=== PATIENT | male | born 1955 | race Caucasian/White ===

== ENCOUNTER 2022-12-20 01:03 | Day surgery (SDC) | payer BC, SELFPAY ==
[2022-12-07 09:27] VITALS: BMI 25.0
[2022-12-20 07:14] VITALS: BP 152/87; PULSE 64; RESP 16; TEMP 36.2; O2SAT 99; BMI 24.9
[2022-12-20] MEDS: LACTATED RINGERS 1,000 ML 150 ML IV CONT (07:23)
[2022-12-20 08:47] VITALS: BP 126/71; PULSE 64; RESP 23; O2SAT 97
[2022-12-20 08:57] VITALS: BP 141/75; PULSE 61; RESP 15; O2SAT 97
[2022-12-20 09:07] VITALS: BP 139/82; PULSE 56; RESP 18; O2SAT 100
--- NOTE | 2022-12-21 20:00 | P.HP_ITS ---
History of Present Illness History of Present Illness Consent: Risks, benefits, and alternatives have been discussed and questions answered. Patient agrees to proceed with procedure. Chief complaint: neoplasm screening Narrative: Red Crouch is a 67 year old male referred for colon cancer screening Review of Systems Review of Systems: All systems reviewed & are unremarkable except as noted in HPI and below [facility] Social History Social History Smoking status: Never smoker Alcohol intake: current Substance use type: does not use Living arrangements: with family Spiritual care concerns: No Meds Home Medications and Allergies Home Medications Medication Instructions Recorded Confirmed Type multivitamin with minerals-folic 1 tablet PO DAILY 12/07/22 12/20/22 History acid 0.4 mg tablet Allergies Allergy/AdvReac Type Severity Reaction Status Date / Time No Known Allergies Allergy Verified 12/20/22 07:13 Exam Const: General: alert Orientation/consciousness: patient oriented x3 Resp: Auscultation: clear to auscultation bilaterally Cardio: Rhythm: regular rhythm GI: GI Palp: Yes Soft to palpation and No Tenderness to palpation present (GI) Neuro: General: patient oriented x3 Assessment and Plan Assessment and plan (1) Colon cancer screening: Code(s): Z12.11 - Encounter for screening for malignant neoplasm of colon Status: Acute Assessment and Plan: Colonoscopy with possible biopsy or polypectomy or cautery or injection of substances.
== END 2022-12-20 09:21 | disposition home or self-care (01) ==
PROVIDERS: PCP Internal Medicine; Visit Provider Internal Medicine Gastroenterology
PROC: 0DJD8ZZ Inspection of Lower Intestinal Tract, Via Natural or Artificial Opening Endoscopic (ICD-10-PCS; CPT 45378; principal; 2022-12-20 08:30)
DX: Z12.11 Encounter for screening for malignant neoplasm of colon (principal); D12.4 Benign neoplasm of descending colon; K57.30 Diverticulosis of large intestine without perforation or abscess without bleeding
CPT/HCPCS: 45385; 88305; J2704; J7120

== ENCOUNTER 2024-12-13 08:44 | Outpatient (CLI) | payer OTHER, SELFPAY ==
--- OUTSIDE RECORDS SUMMARY | 2024-12-13 08:48 | XMS_ITS | CONTINUITY OF CARE DOCUMENT ---
Author Name nichole varela Address Unknown Organization [facility] Address [id number] [place] [address] [address] [place] [address] Phone [phone] Care Team Providers Care Die Set Up Worker Name Role Phone nichole varela Unavailable Unavailable INSURANCE PROVIDERS Payer name Policy type / Coverage type J Carlos red democrat ID [facility] [id number]
[2024-12-13 09:05] LABS: Basophils Absolute Auto 0.1 K/mm3 (0.0-0.1); Basophils Percent Auto 0.8 % (0.2-1.2); Eosinophils Absolute Auto 0.1 K/mm3 (0-0.3); Eosinophils Percent Auto 1.8 % (0-4.4); Immature Granulocyte Absolute 0.02 K/mm3 (0.00-0.031); Immature Granulocyte Percent A 0.3 % (0-0.5); Lymphocytes Percent Auto 37.6 % (18.3-44.2); Mean Corpuscular HGB Conc 33.3 g/dl (32-36); Mean Corpuscular Hemoglobin 32.4 pg (26-34); Mean Corpuscular Volume 97.2 fl (80-100); Mean Platelet Volume 9.1 fl (7.4-10.4); Monocytes Absolute Auto 0.7 K/mm3 (0.1-0.6); Monocytes Percent Auto 11.8 % (2.6-8.5); Neutrophils Absolute Auto 2.9 K/mm3 (1.3-6.7); Neutrophils Percent Auto 47.7 % (45.5-73.1); Platelet Count Result 184 k/mm3 (150-375); Red Blood Count 4.63 M/mm3 (4.6-6.20); Red Cell Distribution Width 12.7 % (11.5-14.5); White Blood Count 6.1 K/mm3 (4.5-10.0)
== END 2024-12-13 08:45 | disposition home or self-care (01) ==
LOC: ANHLAB 08:46
PROVIDERS: PCP Internal Medicine; Visit Provider Surgery
DX: K40.90 Unilateral inguinal hernia, without obstruction or gangrene, not specified as recurrent (principal)
CPT/HCPCS: 36415; 85025; 86850; 86900; 86901

== ENCOUNTER 2024-12-18 01:07 | Day surgery (SDC) | payer OTHER, SELFPAY ==
[2024-12-11 09:28] VITALS: BMI 27.0
--- NOTE | 2024-12-11 09:40 | PC.NURSE ---
Report to the Outpatient Waiting Room, entrance under the green pavilion located off [facility], at time ___10:00AM____ on date ___12/18/24____. Planned Procedure Time: ___12:00PM .? Time changes happen often and if your time is changed the preop area will call you the afternoon before. - You and your visitor will be asked to self-screen and do not enter if you have any COVID symptoms. Please call surgeon if you need to reschedule. - A mask is optional within the hospital at this time. Patients may have clear liquids (water, carbonated beverages, clear teas, apple juice) until 3 hours prior to surgery (9:00AM) with a maximum of 20 ounces. - No food from midnight until time of surgery and no smoking, or chewing tobacco (or any form of nicotine). No chewing gum, candy or mints. Take only the following medications with a SIP of water on the morning of surgery: NONE DO NOT STOP ANY OF YOUR OTHER PRESCRIPTION MEDICATIONS PRIOR TO SURGERY EXCEPT THE FOLLOWING Hold all vitamins and supplements for 3 days per anesthesiologist Date to take last dose 12/14/24 Please no make-up, nail surinamese, hairspray, perfume, deodorant, or body powder the day of surgery.? No jewelry (including any body piercings) or valuables the day of surgery, leave them at home.? Please take a shower or bath the night before, or the morning of, surgery with an antibacterial soap.? Wear comfortable, loose fitting clothing.? - Jewelry must be removed prior to entering the operating room.? Rings and piercings that are not removed may be cut off. - The hospital will not accept responsibility for valuables.? - Please leave all valuables, including medications, at home the day of surgery. If you are going home after surgery, a licensed dedicated driver must drive you home.? - NO public transportation without another adult if you receive anesthesia. - We recommend that an adult stay with you for 24 hours following discharge. - We also recommend that you do not drive, make important decision, drink alcoholic beverages, or take any drugs that were not prescribed by your health care provider for at least 24 hours after your discharge time. Follow any additional instructions given to you from your surgeon. Telephone instructions given to ____PATIENT and asked if any additional questions and then verbalized understanding. Patient advised to call surgeon office or pre surgery nurse liaison [phone] if any additional questions.
--- NOTE | 2024-12-16 15:47 | P.SS_ITS ---
Same Day Admit/Disch: [facility] History of Present Illness Chief complaint: Lt Ing Hernia Narrative: Red Crouch is a 69 year old male Who noticed a bulge in the left inguinal area in the summer or fall of 2023. He was suspicious this was a hernia as he had had a right inguinal hernia repair in 2016. The groin area and bulge is uncomfortable and even painful with more activity and straining. He was seen in the office and found to have a reducible left inguinal hernia. After thorough discussion, he is taken to surgery now for robotic laparoscopic repair left inguinal hernia with mesh. [facility] Past Medical History Medical History (Updated 12/18/24 @ 14:29 by Eliecer Page MD) Overweight Social History Social History Smoking status: Never smoker Alcohol intake: current Drinks per week: 6 Substance use type: does not use Living arrangements: with family Additional living arrangements comments: Spiritual care concerns: No Same Day Admit/Disch: Med Pre-admit Medications Home Medications ?Medication ?Instructions ?Recorded ?Confirmed ?Type multivitamin with minerals-folic 1 tablet PO DAILY 12/07/22 12/18/24 History acid 0.4 mg tablet ibuprofen 600 mg tablet 600 mg PO Q6H PRN pain #14 tabs 12/18/24 Rx oxycodone-acetaminophen 5 mg-325 0.5 - 1 tablet PO Q4H PRN pain #10 12/18/24 Rx mg tablet (Percocet) tabs Review of Systems Review of Systems All systems reviewed & are unremarkable except as noted in HPI and below ( HPI) Exam 2 Const: General: comfortable, no acute distress, alert and awake HENMT: Head: normocephalic and atraumatic Mouth: Yes Normal oral and palatal mucosa present Eyes: Conjunctivae: conjunctivae normal Pupils: Equal, round and reactive pupils present EOM: EOMs intact bilaterally Neck: Neck: normal visual inspection, no lymphadenopathy and nontender Resp: Effort & Inspection: normal respiratory effort Auscultation: clear to auscultation bilaterally Cardio: Rate: regular rate Rhythm: regular rhythm Heart sounds: no ga llops, no murmurs and no rubs GI: Inspection: non-distended GI Palp: Yes Soft to palpation, No Tenderness to palpation present (GI), No Hepatomegaly present and No Splenomegaly present : Male General Exam: Yes hernia ( left inguinal bulge, pulses with cough, reduces easily. No right hernia) Penis: Yes normal penis Scrotum: scrotum normal Testes: Testes normal Skin: Lesions: no lesions Rashes: no rashes Neuro: General: no focal motor deficits and CN's II-XI intact bilaterally Cranial nerves: Yes Equal, round and reactive pupils present, Yes Bilaterally intact EOM present, Yes facial symmetry and Yes Midline tongue present Speech: normal speech Motor exam (neuro): 5/5 motor strength present throughout and Motor abnormalities not present Extrem: General: no clubbing, cyanosis or edema and edema Psych: Affect: normal affect Thought process: Normal thought process present Insight: Good insight present (Psych) DS: Summary Time Spent with Patient Time attestation: Total time spent providing and/or coordinating discharge services: DS: Admitting Diagnosis Discharge Date 12/18/2024 Admitting Diagnosis * reducible, symptomatic, left inguinal hernia- plan to proceed with robotic laparoscopic repair with mesh. This procedure has been discussed thoroughly with the patient including the time of procedure in the use of mesh. He understands this will be done under general anesthesia and has an outpatient. The usual length of the surgery well as the length of the recovery have been discussed. The use of mesh has been discussed. The risks benefits alternatives and complications have been discussed. All questions were answered, he understands and agrees to go ahead. DS: Discharge Diagnosis Discharge Diagnosis (1) Left inguinal hernia: Code(s): K40.90 - Unilateral inguinal hernia, without obstruction or gangrene, not specified as recurrent Status: Chronic Assessment and Plan: Robotic laparoscopic repair with mesh performed 12/18/[address] Page Discharge Plan Discharge Patient Disposition: Home, Self-Care Discharge Instructions: 1. May shower the day after surgery over incisions. 2. Call office for: -Wound increasingly painful or bleeding -Vomiting -Fever of greater than 101 degrees 3. Wear scrotal support at all times except when showering or sleeping for 1 week. 4. If no bowel movement for three days, take 1 oz. (30 ml) Milk of Magnesia, if no results, take Fleets enema. 5. No heavy lifting > 15-20 pounds for 2 weeks. 6. No driving for 3 days or while taking narcotic pain medications. 7. Up walking 10-30 minutes three times per day. 8. Resume previous home medications. 9. Follow-up 10-14 days in office for wound check or as previously scheduled. 10. Oral pain medications prescription to be sent home with patient. 11. NUTRITION: Start out by drinking fluids and increase your diet as tolerated. If you experience nausea, try dry toast, crackers, and 7-UP. If nausea or vomiting persists, contact your surgeon?s office. Patient Language: Georgian Stand Alone Forms: General Discharge Instructions Follow-up/Referrals: Eliecer Page MD [Physician] - 2 Weeks Discharge Medications: New oxycodone-acetaminophen [Percocet] 5-325 mg tablet 0.5 - 1 tablet PO Q4H PRN (Reason: pain) Qty: 10 0RF ibuprofen 600 mg tablet 600 mg PO Q6H PRN (Reason: pain) Qty: 14 0RF Continued multivit with min-folic acid 0.4 mg Tablet 1 tablet PO DAILY
[2024-12-18] VITALS (8 sets, daily range): BP systolic 155–166; BP diastolic 77–97; PULSE 70–85; RESP 14–20; TEMP 36.3–36.5; O2SAT 98–100
[2024-12-18] MEDS: ACETAMINOPHEN 500 MG TABLET 1000 MG PO (11:10)
--- NOTE | 2024-12-18 11:13 | WPDHPUPDATE1 ---
History and Physical Update Update Date/Time: 12/18/24 11:13 History and Physical has been reviewed, including an updated exam of the patient. There are NO changes in the patient's condition. Risks, benefits, and alternatives have been discussed and questions answered. Patient agrees to proceed with procedure.
[2024-12-18] MEDS: LACTATED RINGERS 1,000 ML 30 ML IV CONT ×2 (11:15→13:45)
--- NOTE | 2024-12-18 11:16 | WPDANESEPPF ---
Anes - Initial Pre Proc Eval Procedure: Operation Date: 12/18/24 12:00 Proposed Procedures p Robotic Repair Left Inguinal Hernia with Mesh - Eliecer Page MD Date/Time: 12/18/24 11:16 Surgeon: Eliecer Page MD Pre Op Diagnosis: Lt Ing Hernia Patient Data Age: 69 Gender: M Height: 1.85 m Weight: 93 kg Allergies Allergy/AdvReac Type Severity Reaction Status Date / Time No Known Allergies Allergy Verified 12/18/24 10:18 Home Medications ?Medication ?Instructions ?Recorded ?Confirmed ?Type multivitamin with minerals-folic 1 tablet PO DAILY 12/07/22 12/18/24 History acid 0.4 mg tablet Patient hx anesthesia problems: none Family hx anesthesia problems: none Results Review: All pre-operative results and documents have been reviewed as part of the pre-operative evaluation. [facility] Past Medical History Medical History (Updated 12/18/24 @ 11:16 by Alessandro Morel MD) Overweight Social History Social History Smoking status: Never smoker Alcohol intake: current Drinks per week: 6 Substance use type: does not use Living arrangements: with family Additional living arrangements comments: Spiritual care concerns: No Anes - Eval Final PreProcedure Day of Procedure 12/18/24 11:16 Patient weight: overweight Heart: regular rate and rhythm Lungs: clear to auscultation Airway: Mallampati scale class II Neurological: alert and oriented Last oral intake: >/= 8 hours ASA classification: II Emergent: no Anesthetic plan: proceed Anesthesia type and monitoring: general ETT and standard monitoring Results Review: All pre-operative results and documents have been reviewed as part of the pre-operative evaluation. Informed Consent: The patient's anesthetic plan and its attendant risks and benefits were discussed with the patient/family/POA. Questions were solicited and answers provided to the satisfaction of the patient/family/POA.
[2024-12-18] MEDS: KETOROLAC 15 MG/ML VIAL (*BKC) IV PUSH (11:17)
[2024-12-18] MEDS: ceFAZolin 2 GM/D5W 50 ML 2 GM/50 ML BAG IVPB (11:45)
[2024-12-18] MEDS: BUPIVACAINE/EPINEPHRINE 0.5% 50 ML VIAL 30 ML INFILTRATE (12:19)
--- NOTE | 2024-12-18 14:18 | P.OP_ITS ---
Procedure Note - Detailed Date of Procedure 12/18/24 Pre-op Diagnosis Lt Ing Hernia Post-op Diagnosis Same Procedure Performed Robotic laparoscopic repair left inguinal hernia with mesh Surgeon Eliecer Page MD [employer] Specialist Katherine RIDLEYA Anesthesia General and Local Indications Patient noticed a bulge in left groin. He also noticed some discomfort associated with certain activities. He was seen in the office and found to have a reducible left inguinal hernia. He has a history of a previous right inguinal hernia repair in 2016. He is taken to surgery now for robotic laparoscopic repair of left inguinal hernia. Findings This was an indirect left inguinal hernia Description of Procedure Patient was taken to surgery and induced into general anesthesia. The abdomen is prepped and draped. Trocars were placed in the usual fashion starting with the 5 mm applied Medical optical trocar. The robotic trocars were then placed and the 5 mm trocar was switched out for an 8 mm robotic trocar under direct vision. Patient was then placed in Trendelenburg. The robotic arms were brought in and the camera was docked. Camera was targeted. The 2 assistant sales center manager arms had instruments placed and were positioned appropriately near the left inguinal hernia. Some additional local anesthetic was infiltrated to perform an ilioinguinal nerve block. The surgeon then went to the robotic console. A peritoneal flap was then developed anterior to the inguinal canal structures and hernia. It was started laterally and extended medially over to the median umbilical ligament. The peritoneal flap was developed broadly staying close to the peritoneum laterally. Medially, after initial dissection, the dissection plane was moved so that it was directly beneath the left rectus abdominis. This dissection was continued taking care to avoid the urinary bladder. Eventually we came to Ed's ligament. This was dissected medially and the pubis was exposed. We then dissected for further toward the patient's right and dissected past the pubis a cm to. We also dissected over to the medial border of the right rectus muscle on the anterior abdominal wall. The then returned to the area of the hernia defect. With traction on the hernia sac, a lipoma was encountered. This was carefully dissected free from the sac and discarded. Further dissection was carried out dividing the transversalis sling and eventually coming to the edge of the hernia sac. This was carefully dissected free from the cord structures. Lateral traction was placed on the sac and then the cord structures were seen and carefully the sac was dissected away from these cord structures. Continued dissection was used and the sac was dissected well posterior to the cord structures leaving at least 4 cm from the edge of the peritoneum to the posterior edge of the hernia defect. I then went laterally and created a bit more of a pocket. We then returned to the pubis and Ed's ligament. Some additional dissection was carried out on the medial aspect of Ed's ligament until the obturator canal and fat plug were noted. Hemostasis was maintained throughout using cautery and some bipolar cautery. The dissection now was completed. A 17 x 12 cm left mid 3D max mesh was introduced. It was positioned appropriately in the inguinal canal space. A 3-0 Vicryl suture was then used and the mesh was sutured to Ed's ligament medially. 3- 0 Vicryl was then used to suture the anterior aspect of the mesh to the anterior abdominal wall. One suture was placed medial to the inferior epigastric v essels, another suture was placed lateral to the inferior epigastric vessels. The mesh appeared to be in good position and the sutures were intact. Bleeding had been minimal. The peritoneal flap was then closed with running 3-0 V lock suture the residual Vicryl and V lock suture needles were then removed from the peritoneal cavity. All looked good. Instruments were then removed and the robot was undocked. We evacuated CO2 and removed the trocars. Skin wounds were closed with subcuticular 4-0 Monocryl skin suture. The wounds were dressed with Exofin surgical adhesive The patient was awakened and taken to recovery in good condition. Sponge and needle counts were correct x2. Implants 17 x 12 cm extra-large left mid 3DMax mesh Estimated Blood Loss -5 Drains No Packing No Pathology None sent Complications None Condition Stable Disposition PACU [facility] Billing Surgery - Charge Forward: Surgery Billing (Robotic laparoscopic repair left inguinal hernia with mesh)
[2024-12-18] MEDS: oxyCODONE HCL (*CRX) 5 MG TAB IR PO (14:50)
== END 2024-12-18 15:35 | disposition home or self-care (01) ==
PROVIDERS: PCP Internal Medicine; Visit Provider Surgery
PROC: 8E0Y4CZ Robotic Assisted Procedure of Lower Extremity, Percutaneous Endoscopic Approach (ICD-10-PCS; CPT 49650; principal; 2024-12-18 12:00)
DX: K40.90 Unilateral inguinal hernia, without obstruction or gangrene, not specified as recurrent (principal); G89.18 Other acute postprocedural pain; Z79.1 Long term (current) use of non-steroidal anti-inflammatories (NSAID); Z79.891 Long term (current) use of opiate analgesic
CPT/HCPCS: 49650; S2900; A9270; C1781; J0690; J1100; J1885; J2003; J2250; J2405; J2704; J3010; J7120